=== PATIENT | male | born 1975 | race Caucasian/White ===

== ENCOUNTER 2019-10-15 12:37 | Emergency (ER) | payer OTHER, SELFPAY ==
[2019-10-15 12:47] VITALS: BP 130/91; PULSE 70; RESP 16; TEMP 36.4; O2SAT 98
--- NOTE | 2019-10-15 13:11 | ED.GENADUL_ITS ---
Discharge Plan Disposition Patient Disposition: HOME Condition: Improving Discharge Details Chief Complaint: Headache Clinical Impression: Influenza A Primary Care Provider: Jack Joy ED Provider: Micah Nolasco Home Meds and New Rx's Prescriptions: New oseltamivir [Tamiflu] 75 mg capsule 75 mg PO BID 5 Days Qty: 10 RF: 0 Continued ibuprofen 400 mg Tablet 400 mg PO PRN PRNRF: 0 Discharge Instructions Instructions: Influenza (ED) Additional Instructions: Small, frequent sips of fluids to maintain hydration. Take influenza as prescribed. Please be cautious of respiratory droplets as they may spread the infection. Tylenol as needed for aches pains or fever. Return for difficulty breathing, worsening symptoms, or any other acute concerns. Stand Alone Forms: Work Release Medical Decision Making 43-year-old male presents with 2 and half days of fever, chills, body ache, malaise, minimal cough and minimal production of sputum. He is an otherwise healthy male. He has a temp of 36.4, pulse 70, pressure 130/91. His exam is essentially reassuring. It appears consistent with a viral illness. Influenza testing performed and positive for influenza A. Given the early presentation and the course of illness, I do feel he will benefit from Tamiflu which I discussed with him. I will hold him out of work until he is afebrile. Stable for discharge to home and understands return precautions. HPI General Mode of arrival: ambulatory . Date/Time Provider Initiated Documentation: 10/15/19 13:00 . Limitations to Documentation: no limitations . Information obtained by: patient . History of Present Illness 43 year old M presents to the emergency department with the chief complaint of Flulike symptoms, day 2-09/18, described as moderate, Quality is described as dull, and is localized to the head and chest. Patient reports no radiation. Patient started experiencing this day(s) and it has been constant. No relieving factors improve symptom(s), Patient notes fever/chills and loss of appetite. Patient did receive the following treatments prior to arrival, none Related Data Home Medications Medication Instructions Recorded Confirmed ibuprofen 400 mg PO PRN PRN 10/15/19 10/15/19 oseltamivir [Tamiflu] 75 mg PO BID 5 Days #10 cap 10/15/19 Previous Rx's Medication Instructions Recorded oseltamivir [Tamiflu] 75 mg PO BID 5 Days #10 cap 10/15/19 Allergies Allergy/AdvReac Type Severity Reaction Status Date / Time gluten Allergy Severe Unverified 10/15/19 12:51 General Stated Complaint: Headache JOSE MARIA: 2 Review of Systems Narrative: 6 systems reviewed and otherwise negative [facility] Social History Smoking/Tobacco Use Status: Never Drug use: Never Do you feel safe at home: Yes Do you feel safe in your relationship?: Yes Exam Narrative Exam Narrative: GEN: awake, alert, oriented 3. Pleasant, well groomed, interactive. HEAD: Normocephalic, atraumatic ENT: Mucous membranes moist, oropharynx unremarkable, External ear exam unremarkable EYES: PERRL, EOMI NECK: Full ROM, no DARRON, no menigismus CHEST/RESP: Nontender, clear to auscultation bilateral, no wheeze/rhonchi/rales CARDIOVASCULAR: RRR, no murmur, rub nellie. 2+ Rad pulse bilateral ABDOMEN: Soft, nontender, no mass. +Bowel sounds EXT: Full ROM, no edema, no rash Neuro: Grossly normal neurologic exam, conversant, interactive. Psych: Speech fluent, thoughts congruent, affect normal Course Vital Signs Vital signs: Vital Signs Temperature 36.4 C L 10/15/19 12:47 Pulse 70 10/15/19 12:47 Respiratory Rate 16 10/15/19 12:47 Blood Pressure 130/91 H 10/15/19 12:47 Pulse Oximetry 98 10/15/19 12:47 Temperature 36.4 C L 10/15/19 12:47 Temperature Source Tympanic 10/15/19 12:47 Pulse 70 10/15/19 12:47 Respiratory Rate 16 10/15/19 12:47 Respiratory Effort 10/15/19 12:54 Blood Pressure 130/91 H 10/15/19 12:47 Blood Pressure Position Sitting 10/15/19 12:47 Pulse Oximetry 98 10/15/19 12:47 Oxygen Delivery Method Room Air 10/15/19 12:47 Oxygen Flow Rate 0 10/15/19 12:47 Pain Level 7 10/15/19 13:09 Lab/Test Results Lab/Test Results: 10/15/19 13:00 Nasopharynx Influenza Types A,B Antigen - Pending
== END 2019-10-15 13:40 | disposition home or self-care (01) ==
PROVIDERS: Emergency Provider Emergency Medicine; PCP Family Medicine
DX: J10.1 Influenza due to other identified influenza virus with other respiratory manifestations (principal)
CPT/HCPCS: 87449; 99283

== ENCOUNTER 2021-04-20 12:23 | Emergency (ER) | payer OTHER, SELFPAY ==
[2021-04-20 12:28] VITALS: BP 135/68; PULSE 71; TEMP 36.9; O2SAT 96
--- NOTE | 2021-04-20 12:30 | DI.RAD_ITS ---
Exam(s) XR ELBOW LT COMPLETE EXAM: XR ELBOW LT COMPLETE CLINICAL HISTORY: COntusion, posterior pain. TECHNIQUE: 2D digital imaging was performed. COMPARISON: No exams were available for comparison FINDINGS: There is no evidence of fracture or joint effusion. No swelling of the olecranon bursa. Radial head and capitellum appear unremarkable. Bone density normal. No loose intra-articular body seen. Epic ondyles unremarkable IMPRESSION: No significant radiographic findings. DATA REPOSITORY: RADIATION DOSE DELIVERED:
--- NOTE | 2021-04-20 13:08 | ED.GENADUL_ITS ---
Discharge Plan Disposition Patient Disposition: HOME Condition: Improving Discharge Details Clinical Impression: Contusion of elbow, left Primary Care Provider: Unknown,Unknown ED Provider: Micah Nolasco Home Meds and New Rx's Prescriptions: Continued ibuprofen 400 mg Tablet 400 mg PO PRN PRNRF: 0 Discharge Instructions Instructions: Contusion in Adults (ED) Additional Instructions: Please place ice to area 20 minutes at a time to reduce pain and swelling. Light duty at work. May apply heat in 24 hours to increase blood flow and he discomfort. Return for any acute concerns. Stand Alone Forms: Work Release Medical Decision Making 45-year-old male presents with left elbow pain after striking it on a hard metal surface from pulling backwards to wrench on a another piece of equipment. He did not injure himself in any other way. Referred for x-ray which does not reveal any soft tissue swelling or underlying bony injury. Patient reassured. Will continue to ice. He anticipates increased soreness over the next 24 hours but is stable for outpatient management. HPI General Mode of arrival: ambulatory . Date/Time Provider Initiated Documentation: 04/20/21 12:31 . Limitations to Documentation: no limitations . Information obtained by: patient . History of Present Illness 45 year old M pr esents to the emergency department with the chief complaint of Left elbow contusion and pain, Quality is described as dull and constant, and is localized to the left and upper extremity. Patient reports no radiation. Patient started experiencing this minute(s) and it has been constant. No relieving factors improve symptom(s), No exacerbating factors reported . Patient did receive the following treatments prior to arrival, none Related Data Home Medications Medication Instructions Recorded Confirmed ibuprofen 400 mg PO PRN PRN 10/15/19 04/20/21 Allergies Allergy/AdvReac Type Severity Reaction Status Date / Time gluten Allergy Severe Unverified 10/15/19 12:51 hepatitis B virus vaccine Allergy Severe Unverified 04/20/21 12:32 General Stated Complaint: Orthopedic JOSE MARIA: 3 Review of Systems Narrative: No numbness or tingling. Motor function intact. No other injury. 4 systems reviewed and otherwise negative [facility] Social History Smoking/Tobacco Use Status: Never Smoking risk assessment performed?: Yes Alcohol Intake: current Alcohol Intake frequency: holidays/special occasions only Drug use: Never Substance use type: does not use Do you feel safe at home: Yes Do you feel safe in your relationship?: Yes Exam Narrative Exam Narrative: GEN: awake, alert, oriented 3. Pleasant, well groomed, interactive. HEAD: Normocephalic, atraumatic ENT: Mucous membranes moist, oropharynx unremarkable, External ear exam unremarkable EXT: Full ROM, left posterior elbow with tenderness in area of ecchymosis. Range of motion is intact. The condyles are nontender, no significant tenderness with supination. Neuro: Grossly normal neurologic exam, conversant, interactive. Psych: Speech fluent, thoughts congruent, affect normal Course Vital Signs Vital signs: Vital Signs Temperature 36.9 C 04/20/21 12:28 Pulse 71 04/20/21 12:28 Blood Pressure 135/68 04/20/21 12:28 Pulse Oximetry 96 04/20/21 12:28 Temperature 36.9 C 04/20/21 12:28 Temperature Source Temporal Artery Scan 04/20/21 12:28 Pulse 71 04/20/21 12:28 Respiratory Effort Non-Labored 04/20/21 12:31 Blood Pressure 135/68 04/20/21 12:28 Blood Pressure Position Sitting 04/20/21 12:28 Pulse Oximetry 96 04/20/21 12:28 Oxygen Delivery Method Room Air 04/20/21 12:28 Oxygen Flow Rate 0 04/20/21 12:28 Pain Level 6 04/20/21 12:28
--- NOTE | 2021-04-20 13:32 | NUR.NOTE ---
pt returns from DI comfortable, observed pt applying ice pack to L-elbow, states he can tolerate pain when resting extremity, all needs met, safety maintained, will continue to monitor
--- NOTE | 2021-04-20 14:10 | NUR.NOTE ---
[id number] to cm for pcp
== END 2021-04-20 14:02 | disposition home or self-care (01) ==
PROVIDERS: Emergency Provider Emergency Medicine
DX: S50.02XA Contusion of left elbow, initial encounter (principal); W22.8XXA Striking against or struck by other objects, initial encounter
CPT/HCPCS: 99283; 73080

== ENCOUNTER 2021-08-03 13:12 | Outpatient (REF) | payer OTHER, SELFPAY ==
[2021-08-04 22:17] LABS: COVID-19 RT-PCR UVMMC Result Positive (Negative)
== END 2021-08-03 13:13 | disposition home or self-care (01) ==
LOC: LBN 13:12
PROVIDERS: Visit Provider Nurse Practitioner Family
DX: Z20.822 Contact with and (suspected) exposure to COVID-19 (principal)
CPT/HCPCS: U0003

== ENCOUNTER 2023-01-18 11:58 | Emergency (ER) | payer OTHER, SELFPAY ==
[2023-01-18 12:07] VITALS: BP 124/87; PULSE 71; RESP 15; TEMP 36.4; O2SAT 100
--- NOTE | 2023-01-18 13:01 | ED.GENADUL_ITS ---
Discharge Plan Disposition Patient Disposition: Home Discharge Details Clinical Impression: Sprain of right shoulder Primary Care Provider: Unknown,Unknown ED Provider: Aracely Tilley Home Meds and New Rx's Prescriptions: No Action ibuprofen 400 mg Tablet 400 mg PO PRN PRN Discharge Instructions Instructions: Shoulder Sprain (ED) Additional Instructions: Wear the sling as needed for comfort. X-ray showed no evidence for dislocation or fracture or broken bones. You may have torn something in your shoulder. Please follow-up with orthopedics within the next 1 to 2 weeks. You are placed on a care management list, they will look at the x-rays and call you for a follow-up appointment however you may call them as well. Rest, ice, compression elevation. You may do some light stretches and range of motion exercises when better. Please take Tylenol or Ibuprofen with food every 4-6 hours as needed for pain and swelling. Stand Alone Forms: Work Release Referrals: Crow Bustillos MD [ [facility]YS[facility]IAN] - 1 week Discharge Data Discharge Date/Time-TO BE ENTERED AT DEPARTURE: 01/18/23 14:30 Medical Decision Making 47-year-old male presents to the ER with right shoulder pain after reaching up to grab a been at approximately 10 AM while at work. He did not take anything prior to arrival. Distal radial pulses intact extremities pink warm and dry. No obvious deformity. X-ray shoulder and ice pack ordered. X-ray shows no acute dislocation or fracture. Will place patient in a sling, discuss mild shoulder x-rays and have patient follow-up with orthopedics if no improvement within 1 to 2 weeks. This text was generated using [employer] system, please disregard any oddities of phrase or misspellings. Imaging Data Radiologic Study: Imaging: X-Ray Radiologist's impression: CLINICAL HISTORY: Pain, R/O Dislocation. TECHNIQUE: 2D digital imaging was performed of the right shoulder. Four images were obtained. AP, Grashey, Y-view and axillary views were obtained. COMPARISON: No exams were available for comparison FINDINGS: BONES: No acute fracture is present. No bony destructive lesion is seen. JOINTS: No dislocation present. Mild degenerative changes at the acromioclavicular joint. The glenohumeral joint is unremarkable. SOFT TISSUE: Normal. IMPRESSION: No acute fracture or dislocation. HPI General Mode of arrival: ambulatory . Date/Time Provider Initiated Documentation: 01/18/23 12:13 . Limitations to Documentation: no limitations . Information obtained by: patient, RN notes reviewed and old records reviewed . HPI Narrative: 47-year-old male presents to the ER with right shoulder pain after reaching up to saúl a been at approximately 10 AM while at work. He did not take anything prior to arrival. Distal radial pulses intact extremities pink warm and dry. No obvious deformity. No other complaints or associated symptoms. Related Data Home Medications Medication Instructions Recorded Confirmed ibuprofen 400 mg tablet 400 mg PO PRN PRN 10/15/19 01/18/23 Allergies Allergy/AdvReac Type Severity Reaction Status Date / Time gluten Allergy Severe Verified 01/18/23 12:09 hepatitis B virus vaccine Allergy Severe Verified 01/18/23 12:09 General Stated Complaint: Orthopedic JOSE MARIA: 3 Review of Systems Musculoskeletal Musculoskeletal: Reports as per HPI and Reports arthralgias PFSH All Active Problems (Updated 01/18/23 @ 14:06 by Aracely Tilley NP) Sprain of right shoulder (Acute) Influenza A (Acute) Contusion of elbow, left (Acute) Social History Smoking/Tobacco Use Status: Never Smoking risk assessment performed?: Yes Alcohol Intake: current Alcohol Intake frequency: holidays/special occasions only Drug use: Never Substance use type: does not use Do you feel safe at home: Yes Do you feel safe in your relationship?: Yes Exam Extrem General: normal to inspection Right upper extremity: normal capillary refill and shoulder/upper arm Details: abnormal ROM Details: held in an abnormal fashion Details: in ADduction and in extension and pain with active ROM Details: in ABduction; no ecchymosis and no unusual warmth Course Vital Signs Vital signs: Vital Signs Temperature 36.4 C 01/18/23 12:07 Pulse 71 01/18/23 12:07 Respiratory Rate 15 01/18/23 12:07 Blood Pressure 124/87 01/18/23 12:07 Pulse Oximetry 100 01/18/23 12:07 Temperature 36.4 C 01/18/23 12:07 Temperature Source Tympanic 01/18/23 12:07 Pulse 71 01/18/23 12:07 Respiratory Rate 15 01/18/23 12:07 Respiratory Effort Normal 01/18/23 12:17 Blood Pressure 124/87 01/18/23 12:07 Blood Pressure Position Sitting 01/18/23 12:07 Pulse Oximetry 100 01/18/23 12:07 Oxygen Delivery Method Room Air 01/18/23 12:07 Oxygen Flow Rate 0 01/18/23 12:07 Pain Level 7 01/18/23 12:16
--- NOTE | 2023-01-18 13:32 | DI.RAD_ITS ---
Exam(s) XR SHOULDER RT COMPLETE 2+V EXAM: XR SHOULDER RT COMPLETE 2+V CLINICAL HISTORY: Pain, R/O Dislocation. TECHNIQUE: 2D digital imaging was performed of the right shoulder. Four images were obtained. AP, Grashey, Y-view and axillary views were obtained. COMPARISON: No exams were available for comparison FINDINGS: BONES: No acute fracture is present. No bony destructive lesion is seen. JOINTS: No dislocation present. Mild degenerative changes at the acromioclavicular joint. The glenoh umeral joint is unremarkable. SOFT TISSUE: Normal. IMPRESSION: No acute fracture or dislocation. DATA REPOSITORY: RADIATION DOSE DELIVERED:
[2023-01-18] MEDS: Ibuprofen 800 MG TAB PO (14:22)
== END 2023-01-18 14:30 | disposition home or self-care (01) ==
PROVIDERS: Emergency Provider Registered Nurse Emergency
DX: S43.401A Unspecified sprain of right shoulder joint, initial encounter (principal); X58.XXXA Exposure to other specified factors, initial encounter
CPT/HCPCS: 99283; 73030